=== PATIENT | female | born 1935 | race Caucasian/White ===

== ENCOUNTER 2018-06-30 10:36 | Outpatient (CLI) | payer MEDICARE, OTHER ==
--- NOTE | 2018-06-30 13:45 | RAD ---
RIGHT KNEE FOUR VIEWS: History: Right knee pain. FINDINGS: There are degenerative changes noted. The medial and lateral joint spaces are preserved, however, mil d spurring is seen from the tibial spines and posterior patella. No evidence of joint effusion. No fr acture or acute abnormality. IMPRESSION: Mild degenerative changes are noted. POS: [facility]
== END 2018-06-30 10:37 | disposition home or self-care (01) ==
LOC: MADRAD 10:36
PROVIDERS: ATTEND Family Medicine
DX: M25.561 Pain in right knee (principal); M17.11 Unilateral primary osteoarthritis, right knee

== ENCOUNTER 2019-08-18 04:10 | Emergency (ER) | payer MEDICARE, OTHER ==
[2019-08-18] MEDS ORDERED: Diltiazem 125 MG/25 ML ONE ×2 (04:43→04:47)
[2019-08-18] MEDS ORDERED: Aspirin Chewable 81 MG TAB ONE (05:04)
[2019-08-18 05:12] LABS: %Basophils 1.1 % (0.0-1.0); %Eosinophils 5.2 % (0.0-10.0); %Lymphocytes 21.8 % (21.0-51.0); %Neutrophils 66.9 % (42.0-75.0); Hemoglobin 14.8 g/dL (12.0-16.0); Manual Diff?? NO; Mean Corpuscular HGB CONC 30.6 g/dL (32.0-36.0); Mean Corpuscular Hemoglobin 28.2 pg (27.0-31.0); Mean Corpuscular Volume 92.3 fL (78.0-98.0); Mean Platelet Volume 7.5 fL (7.4-10.4); Platelet Count 333 thou/uL (130-400); RBC Distribution Width 12.8 % (11.5-14.5); Red Blood Cell (RBC) Count 5.25 mill/uL (4.20-5.40); White Blood Cell (WBC) Count 9.4 thou/uL (4.8-10.8)
[2019-08-18 05:13] LABS: #Basophils 0.1 thou/uL (0.0-0.2); #Eosinphils 0.5 thou/uL (0.0-0.7); #Monocytes 0.5 thou/uL (0.11-0.59); #Neutrophils 6.3 thou/uL (1.40-6.50); MDiff Complete? YES
[2019-08-18 05:15] LABS: PTT 24.9 SEC (22.9-36.1); Prothrombin Time 13.5 SEC (12.0-14.7)
[2019-08-18 05:24] LABS: ALT (SGPT) 15 U/L (8-55); AST (SGOT) 11 U/L (5-34); Alkaline Phosphatase 100 U/L (40-110); Anion Gap 16 mmol/L (10-20); BUN (Urea Nitrogen) 15 mg/dL (9.8-20.1); Bilirubin, Total 0.6 mg/dL (0.2-1.2); Calc. Creatinine Clearance 0 mL/min (70-130); Calcium 9.1 mg/dL (7.8-10.44); Carbon Dioxide 20 mmol/L (23-31); Chloride 111 mmol/L (98-107); Estimated GFR-MDRD 50; Globulin 2.8 g/dL (2.4-3.5); Glucose 118 mg/dL (83-110); Potassium 3.7 mmol/L (3.5-5.1); Protein, Total 6.8 g/dL (6.0-8.3); Sodium 143 mmol/L (136-145)
[2019-08-18] MEDS ORDERED: Digoxin 0.5 MG/2 ML AMP ONE (05:32)
[2019-08-18] MEDS ORDERED: ALPRAZolam 0.5 MG TAB ONE (05:51)
[2019-08-18] MEDS ORDERED: Sodium Chloride 0.9% 100 ML BAG ONE (07:47)
--- NOTE | 2019-08-18 09:35 | RAD ---
CHEST 1 VIEW: Date: 08/18/19 HISTORY: Atrial fibrillation with rapid ventricular rate. FINDINGS: Heart size is within normal limits. Lungs are clear. No confluent pneumonia, overt edema, or pleural effusion. IMPRESSION: No significant acute intrathoracic disease. POS: [facility]
[2019-08-18 12:42] LABS: #Lymphocytes 2.1 thou/uL (1.20-3.40)
== END 2019-08-18 07:18 | disposition short-term general hospital (02) ==
LOC: MADERS 04:10
DX: I48.91 Unspecified atrial fibrillation (principal)
CPT/HCPCS: 71045; 80053; 84484; 85025; 85610; 85730; 93005; 96365; 96375; 96376; J1160; J3490

== ENCOUNTER 2019-10-01 19:00 | Emergency (ER) | payer MEDICARE, OTHER ==
[2019-10-01 19:45] LABS: #Eosinphils 0.1 thou/uL (0.0-0.7); #Lymphocytes 1.4 thou/uL (1.20-3.40); #Monocytes 0.5 thou/uL (0.11-0.59); #Neutrophils 5.4 thou/uL (1.40-6.50); %Basophils 0.5 % (0.0-1.0); %Eosinophils 0.9 % (0.0-10.0); %Lymphocytes 18.6 % (21.0-51.0); %Monocytes 6.4 % (0.0-10.0); %Neutrophils 73.7 % (42.0-75.0); Hemoglobin 13.9 g/dL (12.0-16.0); Mean Corpuscular HGB CONC 30.2 g/dL (32.0-36.0); Mean Corpuscular Hemoglobin 27.5 pg (27.0-31.0); Mean Platelet Volume 7.2 fL (7.4-10.4); Platelet Count 360 thou/uL (130-400); RBC Distribution Width 13.2 % (11.5-14.5); Red Blood Cell (RBC) Count 5.05 mill/uL (4.20-5.40); White Blood Cell (WBC) Count 7.3 thou/uL (4.8-10.8)
[2019-10-01] MEDS ORDERED: Metoprolol Tartrate 5 MG/5 ML VIAL ONE ×3 (19:45→20:29)
--- NOTE | 2019-10-01 19:57 | RAD ---
EXAM: CHEST ONE VIEW HISTORY: Chest pain COMPARISON: 08/18/2019 FINDINGS: Cardiac silhouette is magnified by projection but does appear mildly enlarged. Pulmonary vasculature also appears mildly increased. There is suggestion of blunting of the left lateral costophrenic angle, but this is most likely related to overlying soft tissue density. No consolidation is seen. Os teopenia is present. Vascular calcifications are seen in the thoracic aorta. IMPRESSION: Marked cardiomegaly with pulmonary vascular congestion. Correlation for mild CHF is suggested.
[2019-10-01 20:04] LABS: ALT (SGPT) 17 U/L (8-55); AST (SGOT) 14 U/L (5-34); Albumin 3.8 g/dL (3.4-4.8); Alkaline Phosphatase 88 U/L (40-110); Anion Gap 15 mmol/L (10-20); BUN (Urea Nitrogen) 21 mg/dL (9.8-20.1); Bilirubin, Total 0.8 mg/dL (0.2-1.2); CK (CPK) 44 U/L (29-168); Calc. Creatinine Clearance 0 mL/min (70-130); Calcium 8.9 mg/dL (7.8-10.44); Carbon Dioxide 23 mmol/L (23-31); Chloride 105 mmol/L (98-107); Estimated GFR-MDRD 47; Globulin 2.8 g/dL (2.4-3.5); Glucose 111 mg/dL (83-110); Potassium 4.5 mmol/L (3.5-5.1); Protein, Total 6.6 g/dL (6.0-8.3); Sodium 138 mmol/L (136-145)
[2019-10-01] MEDS ORDERED: Diltiazem 125 MG/25 ML ONE (21:00)
[2019-10-01] MEDS ORDERED: Sodium Chloride 0.9% 100 ML ONE (21:01)
== END 2019-10-01 22:05 | disposition short-term general hospital (02) ==
LOC: MADERS 19:00
DX: I48.91 Unspecified atrial fibrillation (principal); I10 Essential (primary) hypertension; I49.9 Cardiac arrhythmia, unspecified; F41.0 Panic disorder [episodic paroxysmal anxiety]; Z79.899 Other long term (current) drug therapy; Z79.01 Long term (current) use of anticoagulants
CPT/HCPCS: 71045; 80053; 82550; 83880; 84443; 84484; 85025; 93005; 96365; 96375; 96376; J3490